=== PATIENT | male | born 1985 | race Hispanic/Latino ===

== ENCOUNTER 2019-07-31 17:45 | Emergency (ER) | payer OTHER ==
[2019-07-31] MEDS ORDERED: methylPREDNISolone Sod Succinate 125 MG/2 ML INJ IV ONE (18:22)
[2019-07-31] MEDS ORDERED: IPRATROPIUM 0.02% NEBU 2.5 ML IH ONE (18:22)
[2019-07-31] MEDS ORDERED: ALBUTEROL 2.5 MG/3 ML NEBU IH ONE (18:22)
[2019-07-31] MEDS ORDERED: SODIUM CHLORIDE 0.9% 500 ML 500 ML IV ONE (18:22)
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
[2019-07-31 18:54] LABS: ABG Base Excess -3.6 mmol/L (-2.0-3.0); ABG HCO3 22.3 mmol/L (20.0-26.0); ABG Methemoglobin 0.6 % (0.0-1.5); ABG Oxygen Saturation 94.3 % (95.0-99.0); ABG PCO2 43.5 mm Hg; ABG PH 7.328 pH Units (7.350-7.450); ABG PO2 66.7 mm Hg (80.0-90.0)
--- NOTE | 2019-07-31 18:55 | XRay Report ---
CHEST 1 VIEW 07/31/2019 6:26 PM INDICATION / CLINICAL INFORMATION: dyspnea. COMPARISON: None available. FINDINGS: SUPPORT DEVICES: None. HEART / MEDIASTINUM: No significant abnormality. LUNGS / PLEURA: No significant pulmonary or pleural abnormality. No pneumothorax. ADDITIONAL FINDINGS: No significant additional findings. IMPRESSION: 1. No acute findings. Signer Name: Edy Goodwin MD Signed: 07/31/2019 6:51 PM Workstation Name: [id number]
[2019-07-31 19:39] LABS: Hemoglobin 13.5 gm/dl (11.8-15.2); Mean Corpuscular HGB Conc 34 % (32-34); Mean Corpuscular Volume 85 fl (84-94); Platelet Count 220 K/mm3 (140-440); Red Cell Distribution Width 13.3 % (13.2-15.2)
[2019-07-31 19:49] LABS: INR 1.06 (0.87-1.13)
[2019-07-31 20:02] LABS: Alanine Aminotransferase 26 units/L (7-56); Albumin 3.9 g/dL (3.9-5); BUN/Creatinine Ratio 13; Blood Urea Nitrogen 12 mg/dL (9-20); Calcium 8.3 mg/dL (8.4-10.2); Hemolysis Index 5
[2019-07-31] MEDS ORDERED: SODIUM CHLORIDE 0.9% 1000 ML 1,000 ML IV ONE (21:11)
--- NOTE | 2019-07-31 21:17 | Cat Scan Report ---
CT HEAD WITHOUT CONTRAST INDICATION / CLINICAL INFORMATION: Mental status. Intoxication. TECHNIQUE: All CT scans at this location are performed using CT dose reduction for ALARA by means of automated e xposure control. COMPARISON: None available. FINDINGS: HEMORRHAGE: No evidence of intracranial hemorrhage or extra-axial fluid collection. EXTRA-AXIAL SPACES: Cortical sulci, sylvian fissures and basilar cisterns have an unremarkable appear ance. VENTRICULAR SYSTEM: The ventricular system is of normal size and configuration. CEREBRAL PARENCHYMA: No areas of abnormal brain parenchymal attenuation are identified. There is no i ndication of recent infarction. MIDLINE SHIFT OR HERNIATION: There is no mass effect. CEREBELLUM / BRAINSTEM: Brainstem and cerebellum have an unremarkable appearance. INTRACRANIAL VESSELS:No abnormalities are identified on this noncontrast head CT. ORBITS: visualized portions of the orbits have an unremarkable appearance. SOFT TISSUES of HEAD: No significant abnormality. CALVARIUM: Evaluation of bone windows reveals no abnormalities. PARANASAL SINUSES / MASTOID AIR CELLS: Paranasal sinuses are free from inflammatory mucosal disease. Mastoid air cells are normally pneumatized. ADDITIONAL FINDINGS: None. IMPRESSION: 1. No abnormalities identified on head CT without contrast. Signer Name: Devin Mccormack MD Signed: 07/31/2019 9:13 PM Workstation Name: [id number]
[2019-07-31 23:37] VITALS: BP 116/53
== END 2019-07-31 23:07 | disposition home or self-care (01) ==
LOC: ED 17:45
DX: T50.901A Poisoning by unspecified drugs, medicaments and biological substances, accidental (unintentional), initial encounter (principal); J45.909 Unspecified asthma, uncomplicated; F17.200 Nicotine dependence, unspecified, uncomplicated; Z79.899 Other long term (current) drug therapy; Y92.89 Other specified places as the place of occurrence of the external cause
CPT/HCPCS: 36415; 70450; 71045; 80053; 82550; 82803; 83735; 85027; 85610; 93005; 93010; 94644; 96374; 99291; J2930; 80320; G0480